=== PATIENT | female | born 1985 | race Caucasian/White ===

== ENCOUNTER 2018-10-26 10:55 | Emergency (ER) | payer MEDICAID ==
[2018-10-26] MEDS ORDERED: Aspirin 81mg Chewable Tab PO STA (11:09)
[2018-10-26] MEDS ORDERED: Aspirin 81mg Chewable Tab ONE (11:21)
[2018-10-26 11:26] LABS: % BASOPHILS 0.4 % (0.0-2.0); % EOSINOPHILS 1.3 % (0.0-5.0); % MONOCYTES 8.4 % (2.0-10.0); % NEUTROPHILS 64.9 % (40.0-80.0); EOSINOPHILE ABSOLUTE 0.1 Th/cmm (0.1-0.4); HEMATOCRIT 41.1 % (41.0-60); LYMPHOCYTE ABSOLUTE 1.8 Th/cmm (1.5-3.0); MEAN CELL VOLUME 94.1 fl (81-100); MONOCYTE ABSOLUTE 0.6 Th/cmm (0.3-1.0); NEUTROPHILE ABSOLUTE 4.5 Th/cmm (1.8-8.0); PLATELET COUNT 251 Th/cmm (150-400); RED BLOOD COUNT 4.36 Mil/cmm (3.80-5.10); RED CELL DISTRIBUTION WIDTH 12.4 % (11.5-20.0)
--- NOTE | 2018-10-26 11:30 | ED Physician Chart ---
ED Chief Complaint/HPI - Patient Information Date Seen:: 10/26/18 Time Seen:: 11:07 Chief Complaint:: sharp 45 minutes pinpoint prior History of Present Illness:: has seen pmd for similar no hx of chd or ihd Allergies:: Allergies Allergy/AdvReac Type Severity Reaction Status Date / Time No Known Allergies Allergy Verified 01/04/16 11:10 Vitals:: Vital Signs - 8 hr 10/26/18 11:07 Temp 97.0 F HR 83 RR 23 BP 138/76 O2 Sat % 99 Review:: Nurse's Note Reviewed ED Review of Systems - Review of Systems General/Constitutional: No fever Skin: No skin lesions Head: No headache Eyes: No loss of vision ENT: No earache Neck: No neck pain, No swelling Cardio Vascular: No chest pain, No edema Pulmonary: No SOB GI: No vomiting Front End Web Developer: No vaginal discharge, No abnormal vaginal bleed Musculoskeletal: No muscle pain Psychiatric: Anxiety Hematopoietic: No bruising Allergic/Immuno: No urticaria Neurological: Syncope ED Past Medical History - Past Medical History Past Medical History: No significant medical hx (no dvt no pe no cough blood no bcp) Family History: None Social History: No Drug Use Psychiatricy History: Other (anxiety) Family Medical History - Family Member Mother Living Status: Still Living Hx Family Diabetes: Yes ED Physical Exam - Physical Examination General/Constitutional: No distress, GCS 15 Head: Atraumatic Eyes: Lids, conjuctiva normal Skin: Nl inspection ENMT: External ears, nose nl Neck: Nontender Respiratory: Nl effort/Exclusion Cardio Vascular: RRR GI: No tenderness/rebounding/guarding : No CVA tenderness Extremities: No tenderness or effusion Neuro/Psych: Alert/oriented Misc: Normal back ED Labs/Radiology/EKG Results - Lab Results Results: Laboratory Tests 10/26/18 11:15 POC Ur Test Negative ED Assessment - Assessment General Assessment: atypical chest pain ED Septic Shock - . Is Septic Shock (SBP<90, OR Lactate>4 mmol\L) present?: No - <6hrs of presentation: Vital Signs: Vital Signs - 8 hr 10/26/18 11:07 Temp 97.0 F HR 83 RR 23 BP 138/76 O2 Sat % 99 ED Reassessment (Disposition) - Patient Disposition Discharge/Transfer:: Home (pcp to resolve anxiety issues cough blood sob diffuse chest pain 911)
--- NOTE | 2018-10-26 13:24 | Diagnostic Imaging Report ---
Portable chest x-ray History: Pain Allowing for portable technique the heart size is normal. No focal pulmonary parenchymal processes. No hilar or mediastinal abnormalities. Impression: No acute abnormalities.
== END 2018-10-26 12:45 | disposition home or self-care (01) ==
LOC: ER 10:55
DX: R07.89 Other chest pain (principal); R55 Syncope and collapse
CPT/HCPCS: 36415-UA; 71045-TC; 81025-TC; 84484-TC; 85025-TC; 85379-TC; 93005